=== PATIENT | female | born 1995 | race Caucasian/White ===

== ENCOUNTER 2021-03-14 01:22 | Emergency (ER) | payer OTHER ==
[~2021-03-14] VITALS: Ht 165.1 cm; Wt 108.9 kg
[2021-03-14 01:37] VITALS: BP_SYST 98
[2021-03-14 02:34] VITALS: BP_SYST 98
== END 2021-03-14 02:30 ==
LOC: SED 01:22
DX: M25.531 Pain in right wrist (principal); V47.5XXA Car driver injured in collision with fixed or stationary object in traffic accident, initial encounter; Y93.89 Activity, other specified; Y92.89 Other specified places as the place of occurrence of the external cause; Y99.8 Other external cause status
CPT/HCPCS: 99283